=== PATIENT | female | born 1990 | race Caucasian/White ===

== ENCOUNTER → 2018-10-03 | Emergency (ER) | payer OTHER ==
[2018-10-03 01:13] LABS: ADD MAN DIFF? NO
[2018-10-03 01:17] LABS: BASOPHILS % 0.1 % (0.0-2.0); EOSINOPHILS % 0.5 % (0.0-7.0); HEMATOCRIT 39.4 % (37.0-47.0); HEMOGLOBIN 13.4 g/dl (12.0-16.0); LYMPHOCYTES # 2.5 10^3/ul (0.8-2.9); LYMPHOCYTES % 33.3 % (15.0-51.0); MEAN CORPUSCULAR HEMOGLOBIN 29.5 pg (29.0-33.0); MEAN CORPUSCULAR VOLUME 86.6 fl (82.0-101.0); MEAN PLATELET VOLUME 9.9 fl (7.4-10.4); MONOCYTE # 0.4 10^3/ul (0.3-0.9); MONOCYTES % 5.7 % (0.0-11.0); NEUTROPHIL # 4.5 10^3/ul (1.6-7.5); NEUTROPHILS % 59.9 % (39.0-77.0); PLATELET COUNT 252 10^3/UL (140-415); RED BLOOD COUNT 4.55 10^6/ul (4.20-5.40)
[2018-10-03 01:17] LABS: WHITE BLOOD COUNT 7.6 10^3/ul (4.8-10.8)
[2018-10-03 01:19] LABS: ADD UMIC YES; UR ASCORBIC ACID NEGATIVE (NEGATIVE); UR BACTERIA MODERATE /HPF (NONE SEEN); UR BILIRUBIN (Dip) NEGATIVE (NEGATIVE); UR BLOOD (Dip) NEGATIVE (NEGATIVE); UR CLARITY CLOUDY (CLEAR); UR COLOR YELLOW (YELLOW); UR GLUCOSE (Dip) NEGATIVE (NEGATIVE); UR KETONES (Dip) NEGATIVE (NEGATIVE); UR LEUKOCYTE ESTERASE (Dip) 2+ Leu/ul (NEGATIVE); UR MUCUS FEW /HPF (NONE SEEN); UR NITRITE (Dip) NEGATIVE (NEGATIVE); UR RBC 4 /HPF (0-5); UR SPECIFIC GRAVITY (Dip) 1.023 (1.003-1.030); UR SQUAMOUS EPITHELIAL CELL MANY /HPF (FEW); UR TOTAL PROTEIN (Dip) NEGATIVE (NEGATIVE); UR UROBILINOGEN (Dip) 1+ mg/dL (NEGATIVE); UR WBC 64 /HPF (0-5)
== END | disposition home or self-care (01) ==
LOC: E/R 00:28
DX: O26.892 Other specified pregnancy related conditions, second trimester (principal); O23.42 Unspecified infection of urinary tract in pregnancy, second trimester; R10.2 Pelvic and perineal pain; O99.332 Smoking (tobacco) complicating pregnancy, second trimester; F17.210 Nicotine dependence, cigarettes, uncomplicated; Z02.89 Encounter for other administrative examinations; Z3A.15 15 weeks gestation of pregnancy
CPT/HCPCS: 36415; 76801; 81001; 84702; 85025; 99284-25

== ENCOUNTER 2018-12-12 21:00 | Outpatient (CLI) | payer OTHER ==
[2018-12-12 22:00] LABS: ADD MAN DIFF? NO
[2018-12-12 22:03] LABS: WHITE BLOOD COUNT 8.5 10^3/ul (4.8-10.8)
[2018-12-12 22:03] LABS: BASOPHILS % 0.2 % (0.0-2.0); EOSINOPHILS % 0.1 % (0.0-7.0); HEMATOCRIT 27.8 % (37.0-47.0); HEMOGLOBIN 9.3 g/dl (12.0-16.0); LYMPHOCYTES # 1.9 10^3/ul (0.8-2.9); LYMPHOCYTES % 22.4 % (15.0-51.0); MEAN CORPUSCULAR HEMOGLOBIN 29.2 pg (29.0-33.0); MEAN CORPUSCULAR HGB CONC 33.5 g/dl (32.0-37.0); MEAN CORPUSCULAR VOLUME 87.4 fl (82.0-101.0); MEAN PLATELET VOLUME 9.9 fl (7.4-10.4); MONOCYTE # 0.6 10^3/ul (0.3-0.9); NEUTROPHIL # 5.8 10^3/ul (1.6-7.5); NUCLEATED RED BLOOD CELLS # 0.1 10^3/ul (0.0-0.0); NUCLEATED RED BLOOD CELLS% 0.7 /100WBC (0.0-0.0); PLATELET COUNT 173 10^3/UL (140-415); RED BLOOD COUNT 3.18 10^6/ul (4.20-5.40); RED CELL DISTRIBUTION WIDTH 12.1 % (11.5-14.5)
[2018-12-12 22:16] LABS: ADD UMIC YES; UR ASCORBIC ACID NEGATIVE (NEGATIVE); UR BACTERIA FEW /HPF (NONE SEEN); UR BILIRUBIN (Dip) NEGATIVE (NEGATIVE); UR BLOOD (Dip) NEGATIVE (NEGATIVE); UR CLARITY CLOUDY (CLEAR); UR COLOR YELLOW (YELLOW); UR GLUCOSE (Dip) NEGATIVE (NEGATIVE); UR KETONES (Dip) NEGATIVE (NEGATIVE); UR LEUKOCYTE ESTERASE (Dip) NEGATIVE Leu/ul (NEGATIVE); UR MUCUS FEW /HPF (NONE SEEN); UR NITRITE (Dip) NEGATIVE (NEGATIVE); UR RBC 1 /HPF (0-5); UR SPECIFIC GRAVITY (Dip) 1.017 (1.003-1.030); UR TOTAL PROTEIN (Dip) NEGATIVE (NEGATIVE); UR UROBILINOGEN (Dip) 1+ mg/dL (NEGATIVE); UR WBC 1 /HPF (0-5)
[2018-12-12 22:31] LABS: AMPHETAMINE/METHAMPHETAMINE Negative (NEGATIVE); BARBITURATES Negative (NEGATIVE); BENZODIAZEPINES Negative (NEGATIVE); CANNABINOIDS Negative (NEGATIVE); COCAINE Negative (NEGATIVE); OPIATES Negative (NEGATIVE)
== END 2018-12-13 00:50 | disposition home or self-care (01) ==
LOC: OBT 21:00 → L-D 21:01
DX: O26.892 Other specified pregnancy related conditions, second trimester (principal); R10.9 Unspecified abdominal pain; Z3A.24 24 weeks gestation of pregnancy
CPT/HCPCS: 76815; 76817; 80307; 81001; 85025; 85384

== ENCOUNTER 2018-12-13 00:57 | Emergency (ER) | payer OTHER ==
[2018-12-13] MEDS ORDERED: ACETAMINOPHEN 325 MG TAB (01:29)
[2018-12-13] MEDS: ACETAMINOPHEN 325 MG TAB PO (01:38)
== END 2018-12-13 01:40 ==
LOC: E/R 00:57
DX: Z02.89 Encounter for other administrative examinations (principal); Z87.891 Personal history of nicotine dependence
CPT/HCPCS: 99282

== ENCOUNTER 2018-12-14 16:05 | Outpatient (CLI) | payer OTHER ==
[2018-12-14] MEDS ORDERED: LACTATED RINGER'S 1,000 ML IV ×2 (17:30→19:30)
[2018-12-14 19:02] LABS: RUPTURE FETAL MEMBRANES NEGATIVE (NEGATIVE)
[2018-12-14 21:19] LABS: ADD UMIC NO; UR ASCORBIC ACID NEGATIVE (NEGATIVE); UR BILIRUBIN (Dip) NEGATIVE (NEGATIVE); UR BLOOD (Dip) NEGATIVE (NEGATIVE); UR CLARITY CLEAR (CLEAR); UR COLOR YELLOW (YELLOW); UR GLUCOSE (Dip) NEGATIVE (NEGATIVE); UR KETONES (Dip) NEGATIVE (NEGATIVE); UR LEUKOCYTE ESTERASE (Dip) NEGATIVE Leu/ul (NEGATIVE); UR NITRITE (Dip) NEGATIVE (NEGATIVE); UR SPECIFIC GRAVITY (Dip) 1.019 (1.003-1.030); UR TOTAL PROTEIN (Dip) NEGATIVE (NEGATIVE); UR UROBILINOGEN (Dip) 1+ mg/dL (NEGATIVE)
[2018-12-14 21:42] LABS: AMPHETAMINE/METHAMPHETAMINE Negative (NEGATIVE); BARBITURATES Negative (NEGATIVE); BENZODIAZEPINES Negative (NEGATIVE); CANNABINOIDS Negative (NEGATIVE); COCAINE Negative (NEGATIVE); OPIATES Negative (NEGATIVE)
== END 2018-12-14 23:54 ==
LOC: OBT 16:05 → L-D 16:06 → OBT 23:54
DX: O9A.212 Injury, poisoning and certain other consequences of external causes complicating pregnancy, second trimester (principal); Z3A.24 24 weeks gestation of pregnancy; Z3A.27 27 weeks gestation of pregnancy
CPT/HCPCS: 36415; 76815; 76817; 80307; 81003; 84112; 86900; 86901; 87086; 96360; 96361

== ENCOUNTER 2019-03-09 01:55 | Inpatient (IN) | payer OTHER ==
[2019-03-09] MEDS ORDERED: LACTATED RINGER'S 1,000 ML IV* (02:11)
[2019-03-09] MEDS ORDERED: LACTATED RINGER'S 1,000 ML IV (02:15)
[2019-03-09] MEDS: OXYTOCIN 10 UNIT INJ IM (02:20)
[2019-03-09] MEDS ORDERED: LANOLIN HPA 1 PKT TOP ×2 (02:30)
[2019-03-09] MEDS ORDERED: HYDROCODONE/APAP (5/325) TAB PO ×3 (02:30)
[2019-03-09] MEDS ORDERED: METHYLERGONOVINE 0.2 MG INJ IM ×2 (02:30)
[2019-03-09] MEDS ORDERED: MISOPROSTOL 200 MCG TAB PR ×2 (02:30)
[2019-03-09] MEDS ORDERED: DIBUCAINE 1% 30 GM OINT TOP ×2 (02:30)
[2019-03-09] MEDS ORDERED: CARBOPROST 250 MCG INJ IM ×2 (02:30)
[2019-03-09] MEDS ORDERED: LIDOCAINE 1% (MPF) 30 ML INJ INJ (02:30)
[2019-03-09] MEDS ORDERED: OXYTOCIN 30 UNITS/LR 500 ML IV ×4 (02:30)
[2019-03-09] MEDS ORDERED: WITCH HAZEL/GLYCERIN PAD PR ×2 (02:30)
[2019-03-09] MEDS ORDERED: BENZOCAINE 20% 56 ML SPRAY TOP ×2 (02:30)
[2019-03-09] MEDS: OXYTOCIN 30 UNITS/LR 500 ML IV ×2 (02:45→06:22)
[2019-03-09] MEDS: LACTATED RINGER'S 1,000 ML IV* (04:32)
[2019-03-09] MEDS: IBUPROFEN 600 MG TAB PO ×4 (05:44→23:32)
[2019-03-09] MEDS ORDERED: IBUPROFEN 600 MG TAB PO (06:00)
[2019-03-09] MEDS: HYDROCODONE/APAP (5/325) TAB PO (22:30)
[2019-03-10] MEDS: IBUPROFEN 600 MG TAB PO ×4 (05:55→23:39)
[2019-03-11] MEDS: IBUPROFEN 600 MG TAB PO ×3 (06:27→17:53)
[2019-03-11] MEDS: VARICELLA VACCINE LIVE/PF 1,350 UNIT/0.5 ML ML SC* (09:00)
[2019-03-11] MEDS: MEASLES,MUMPS,RUBELLA VACCINE INJ SC* (09:00)
[2019-03-11] MEDS: DIPHTH/TET/ACEL PERTUSS (ADULT) 0.5 ML VIAL IM* (11:26)
== END 2019-03-11 21:25 | disposition home or self-care (01) | DRG 776 ==
LOC: OBT 01:55 → L-D 01:57 → PP1 03:58
DX: O90.81 Anemia of the puerperium (principal); D62 Acute posthemorrhagic anemia
CPT/HCPCS: 59414; 80307; 85025; 85610; 85730; 86592; 86703; 86762; 86803; 86850; 86900; 86901; 87340; 90715; 90716